=== PATIENT | male | born 1955 | race Hispanic/Latino ===

== ENCOUNTER 2017-12-25 06:02 | Day surgery (SDC) | payer BC ==
[~2017-12-25 06:02] MED LIST: NACL 0.9% 1000 ML 1,000 ML IV SCH
[2017-12-25] MEDS ORDERED: NACL BACTERIOSTATIC INFILTRATI ONE (06:10)
--- NOTE | 2017-12-25 07:19 | Anesthesia Day of Surgery ---
Anesthesia Day of Surgery - Day of Surgery Patient Examined: Yes Patient H&P Reviewed: Yes Patient is NPO: Yes
--- NOTE | 2017-12-25 07:19 | Anesthesia Consultation ---
Anesthesia Consult and Med Hx Date of service: 12/25/17 - Airway Anesthetic Teeth Evaluation: Good ROM Head & Neck: Adequate Mental/Hyoid Distance: Adequate Mallampati Class: Class I Intubation Access Assessment: Good - Pulmonary Exam CTA: Yes - Cardiac Exam Cardiac Exam: RRR - Pre-Operative Health Status ASA Pre-Surgery Classification: ASA2 Proposed Anesthetic Plan: General - Pulmonary Hx Smoking: No Hx Sleep Apnea: No (CAMILLE PRE SCREEN HIGH RISK) - Cardiovascular System Hx Hypertension: Yes (X 2 YRS) Hx Heart Attack/AMI: No - Central Nervous System Hx Back Pain: Yes (DUE TO STONE) - Endocrine Hx Cirrhosis: No - Other Systems Hx Cancer: No
[2017-12-25] MEDS ORDERED: DIPRIVAN 10 MG/ML IV ONE (07:45)
[2017-12-25] MEDS ORDERED: NARCAN 0.4 MG/1 ML IV PRN (08:00)
[2017-12-25] MEDS ORDERED: ZOFRAN IV PRN (08:00)
[2017-12-25] MEDS ORDERED: DEMEROL IV PRN (08:00)
[2017-12-25] MEDS ORDERED: ANCEF/STERILE WATER 2 GM/20 ML IV NR (08:00)
[2017-12-25] MEDS ORDERED: DILAUDID IV PRN (08:00)
[2017-12-25] MEDS ORDERED: XYLOCAINE MPF 2% ONE (08:32)
--- NOTE | 2017-12-25 10:03 | Operative Report ---
PREOPERATIVE DIAGNOSIS: Bilateral renal stones, right UPJ stone and large left renal stone. POSTOPERATIVE DIAGNOSES: Bilateral renal stones, right UPJ stone and large left renal stone. PROCEDURE: Right in situ lithotripsy. SURGEON: Andrey Dutta MD ANESTHESIA: General. FINDINGS: This is a gentleman with bilateral stones. He has pain more on the right than the left. I spoke with Dr. Lay. He wants the UPJ stone treated on the right and he will have followup treatment for the large stone in the left. PROCEDURE: The patient brought to the operating room and placed on the operating table. Following induction of anesthesia, placed over the focal point without difficulty. The stone was well visualized in the right UPJ. Shocks were begun at 1 kV, increased to maximum of 5 kV. A renal pause was carried out because it was hitting the lower pole of the kidney. The patient tolerated the procedure well. A total of 2500 shocks were given. He was brought to recovery room in stable condition. The patient did not want a stent and it looked like there was good fragmentation. JOB# [id number] DAKOTA/ROLA
--- NOTE | 2017-12-25 10:46 | Post Operative Note ---
Date of procedure: 12/25/17 Pre-op diagnosis: bilat stones r upj stone Post-op diagnosis: same Findings: as above Procedure: r eswl Anesthesia: GETA Surgeon: SHIRA WEBB Estimated blood loss: none Pathology: none Condition: stable Disposition: PACU
--- NOTE | 2017-12-25 10:47 | Discharge Summary ---
Short Stay Discharge Plan Activity: other (no straining ) Weight Bearing Status: Full Weight Bearing Diet: low fat, low salt Special Instructions: other (inc fluids ) Follow up with: PRIMARY CARE, [Primary Care Provider] - 7 Days PABLITO DE JESUS MD [Staff Physician] - 7 Days Forms: Outpatient Surgery DC Inst.
--- NOTE | 2017-12-25 14:21 | Post Anesthesia Evaluation ---
- Post Anesthesia Evaluation Patient Participated: Yes Airway Patent: Yes Stable Respiratory Function: Yes Nausea/Vomiting: No Temp > 96.8F: Yes Pain Manageable: Yes Adequeate Hydration: Yes Anesthesia Complications: No
[2017-12-25 14:55] VITALS: BP 120/80
== END 2017-12-25 10:50 | disposition home or self-care (01) ==
LOC: OR 06:02
PROVIDERS: ATTEND Urology
DX: N13.2 Hydronephrosis with renal and ureteral calculous obstruction (principal); I10 Essential (primary) hypertension
CPT/HCPCS: 50590; J0690; J2704; J7030

== ENCOUNTER 2018-01-22 06:02 | Day surgery (SDC) | payer BC ==
[~2018-01-22 06:02] MED LIST changes: +LACTATED RINGERS 1,000 ML IV SCH; -NACL 0.9% 1000 ML 1,000 ML IV SCH; +VERSED IV NR
[2018-01-22] MEDS ORDERED: DIPRIVAN 10 MG/ML IV ONE (07:35)
[2018-01-22] MEDS ORDERED: TORADOL ONE (07:36)
[2018-01-22] MEDS ORDERED: ZOFRAN ONE (07:36)
[2018-01-22] MEDS ORDERED: XYLOCAINE MPF 2% ONE (07:36)
--- NOTE | 2018-01-22 07:47 | Anesthesia Day of Surgery ---
Anesthesia Day of Surgery - Day of Surgery Patient Examined: Yes Patient H&P Reviewed: Yes Patient is NPO: Yes
--- NOTE | 2018-01-22 07:47 | Anesthesia Consultation ---
Anesthesia Consult and Med Hx Date of service: 01/22/18 - Airway Anesthetic Teeth Evaluation: Good, Caps ROM Head & Neck: Adequate Mental/Hyoid Distance: Adequate Mallampati Class: Class II Intubation Access Assessment: Probably Good - Pulmonary Exam CTA: Yes - Cardiac Exam Cardiac Exam: RRR - Pre-Operative Health Status ASA Pre-Surgery Classification: ASA2 Proposed Anesthetic Plan: General - Pulmonary Hx Smoking: No Hx Sleep Apnea: No (CAMILLE PRE SCREEN HIGH RISK) - Cardiovascular System Hx Hypertension: Yes (X 2 YRS) Hx Heart Attack/AMI: No - Central Nervous System Hx Back Pain: Yes (DUE TO STONE) - Endocrine Hx Cirrhosis: No - Other Systems Hx Cancer: No
[2018-01-22] MEDS ORDERED: DILAUDID IV PRN (08:00)
[2018-01-22] MEDS ORDERED: VERSED ONE (08:00)
[2018-01-22] MEDS ORDERED: ANCEF/STERILE WATER 2 GM/20 ML IV NR (08:30)
--- NOTE | 2018-01-22 08:36 | Post Operative Note ---
Date of procedure: 01/22/18 Pre-op diagnosis: bilat stones Post-op diagnosis: same Findings: l renal stones Procedure: l eswl Anesthesia: NEENA Surgeon: SHIRA WEBB Estimated blood loss: none Pathology: none Condition: stable Disposition: PACU
--- NOTE | 2018-01-22 08:37 | Discharge Summary ---
Short Stay Discharge Plan Activity: other (no straining ) Weight Bearing Status: Full Weight Bearing Diet: low fat Special Instructions: other (inc fluids ) Follow up with: DEVONTE NINO MD [Primary Care Provider] - 7 Days PABLITO DE JESUS MD [Staff Physician] - 7 Days
--- NOTE | 2018-01-22 09:42 | Operative Report ---
PREOPERATIVE DIAGNOSIS: Bilateral renal stone. POSTOPERATIVE DIAGNOSES: Bilateral renal stone. PROCEDURE: Left lithotripsy. SURGEON: Andrey Dutta MD ANESTHESIA: General. FINDINGS: This is a gentleman, who has had right renal stone, has had that cleared, now presents for left lithotripsy. All risks and implications discussed. DESCRIPTION OF PROCEDURE: The patient brought to the operating room and placed on the operating table. Following induction of anesthesia stone well localized, both the AP and oblique image. I reviewed the case with Dr. Lay. He had a ball valve stone, which was now build up in the lower pole with a caliceal stone. We were focusing on that stone. Shocks were begun at 1 kV and increased to 6 kV. We were only at 6 for few 100 shocks. Renal pause was carried out and then the power was gradually increased. The patient tolerated the procedure well. No significant complication. He needs followup. He may need further procedures such as ureteroscopy, percutaneous nephrolithotomy. This was explained, brought to recovery in stable condition. JOB# [id number] DAKOTA/ROLA
[2018-01-22 10:29] VITALS: BP 127/78
== END 2018-01-22 06:03 | disposition home or self-care (01) ==
LOC: OR 06:02
PROVIDERS: ATTEND Urology
DX: N20.0 Calculus of kidney (principal); I10 Essential (primary) hypertension; Z88.5 Allergy status to narcotic agent
CPT/HCPCS: 50590; J0690; J1885; J2250; J2405; J2704; J7120

== ENCOUNTER 2018-02-05 09:53 | Day surgery (SDC) | payer BC ==
--- NOTE | 2018-02-05 12:10 | Short Stay Summary ---
Short Stay Documentation Date of service: 02/05/18 - History H&P: obtained from office - Allergies and Medications Current Medications: Allergies codeine Allergy (Verified 12/15/17 17:24) Vomiting Home Medications Medication Instructions Recorded Confirmed Last Taken Type HYDROcodone/APAP 5-325 [Isom 1 each PO Q6HR PRN 12/15/17 01/30/18 01/01/18 History 5/325] Lisinopril [Zestril] 10 mg PO DAILY 12/15/17 01/30/18 01/21/18 19:30 History Naproxen Sodium [Aleve] 220 mg PO PRN PRN 12/15/17 01/30/18 01/01/18 History Tamsulosin [Flomax] 0.4 mg PO QDAY 12/15/17 01/30/18 01/01/18 History Nitrofurantoin Monohyd/M-Cryst 100 mg PO BID 01/14/18 01/30/18 01/21/18 19:30 History [Macrobid 100 mg Capsule] - Brief post op/procedure progress note Date of procedure: 02/05/18 Pre-op diagnosis: Right ureteral stone L4, jaime renal stone , jaime hydro Procedure: rt uret eswl, rt rpg cyssto, 6x28 stent Anesthesia: GETA Findings: right L4 stone Surgeon: PABLITO DE JESUS Estimated blood loss: minimal Condition: stable - Hospital course Hospital course: or pacu home - Disposition Condition at discharge: Good Disposition: DC-01 TO HOME OR SELFCARE Short Stay Discharge Plan Activity: advance as tolerated Diet: advance as tolerated Follow up with: PABLITO DE JESUS MD [Staff Physician] - 7 Days
[2018-02-05] MEDS ORDERED: ANCEF/STERILE WATER 2 GM/20 ML IV NR (14:00)
[2018-02-05] MEDS ORDERED: NACL 0.9% 1000 ML 1,000 ML IV SCH (15:00)
--- NOTE | 2018-02-05 15:00 | Anesthesia Consultation ---
Anesthesia Consult and Med Hx Date of service: 02/05/18 - Airway Anesthetic Teeth Evaluation: Poor ROM Head & Neck: Adequate Mental/Hyoid Distance: Adequate Mallampati Class: Class II Intubation Access Assessment: Probably Good - Pulmonary Exam CTA: Yes - Cardiac Exam Cardiac Exam: RRR - Pre-Operative Health Status ASA Pre-Surgery Classification: ASA2 Proposed Anesthetic Plan: General - Pulmonary Hx Smoking: No Hx Sleep Apnea: No (CAMILLE PRE SCREEN HIGH RISK) - Cardiovascular System Hx Hypertension: Yes (X 2 YRS) Hx Heart Attack/AMI: No - Central Nervous System Hx Back Pain: Yes (DUE TO STONE) - Endocrine Hx Cirrhosis: No - Other Systems Hx Cancer: No
[2018-02-05] MEDS ORDERED: DIPRIVAN 10 MG/ML IV ONE (15:31)
[2018-02-05] MEDS ORDERED: XYLOCAINE MPF 2% ONE (15:32)
[2018-02-05] MEDS ORDERED: SUBLIMAZE ONE (15:34)
[2018-02-05] MEDS ORDERED: DECADRON ONE (15:34)
[2018-02-05] MEDS ORDERED: ZOFRAN ONE (15:34)
[2018-02-05] MEDS ORDERED: OMNIPAQUE 300 MG/50 ML (CATH LAB) IV ONE (16:22)
--- NOTE | 2018-02-05 16:51 | XRay Report ---
KUB: 02/05/18 12:24:00 CLINICAL: Left kidney stones. COMPARISON: 12/24/12 FINDINGS: Left upper quadrant calcifications overlie the left kidney and an increase in size, number and density as the last exam. A single 1 cm more superior calculus and a cluster of one or more inferior calculi. Probable phleboliths in the pelvis. A right paraspinous calcification at L4 appears to be a amelia calcification. Normal bowel gas pattern. The bones are unremarkable. IMPRESSION: Left renal calculi increased in size and number compared to the last exam.
[2018-02-05 18:21] VITALS: BP 142/90
--- NOTE | 2018-02-15 22:56 | Operative Report ---
PREOPERATIVE DIAGNOSIS: Right ureteral L4 stone, right hydronephrosis and bilateral renal stones. PROCEDURE: Right ureteral ESWL, right RPG cystoscopy and right 6 x 20 double-J stent. ANESTHESIA: General. FINDINGS: Right L4 stone. SURGEON: Kurt Lay M.D. ESTIMATED BLOOD LOSS: Minimal. CONDITION: Stable, OR to PACU, to home. CLINICAL INDICATIONS: The patient was counseled on RCBA had antibiotics, SCDs. Discussed options. DESCRIPTION OF PROCEDURE: The patient was transferred to OR suite in supine position, anesthesia begun. The stone was easily visible. A total shocks were delivered at a maximum of 6.0 kilovolts. At the end of the procedure, could not easily see the stone. At this point, the patient was placed in the dorsal lithotomy. Cystoscopy was set up, 22-Yi cystoscope passed. Pancystoscopy, no tumors or lesions. Of note, the patient has had significant hydro for a while and elected to proceed with stent placement to ensure adequate drainage. Contrast injected, confirmed our position, but there was hydroureter. Wire passed up the right renal pelvis. A 6 x 20 double-J stent was passed over the wire under direct and fluoroscopic visualization. When the wire and string was removed, nice proximal J, nice distal J, bladder drained. The patient awakened and transferred to PACU in good and stable condition. PLAN: Staged for future removal of stent. JOB# [id number] ATS/NTS
== END 2018-02-05 18:50 | disposition home or self-care (01) ==
LOC: OR 09:53
PROVIDERS: ATTEND Urology
DX: N13.2 Hydronephrosis with renal and ureteral calculous obstruction (principal); I10 Essential (primary) hypertension; Z88.5 Allergy status to narcotic agent; Z98.890 Other specified postprocedural states; Z79.899 Other long term (current) drug therapy
CPT/HCPCS: 50590; 52356; 74018; C1726; C1758; C1769; C2617; J0690; J1100; J2405; J2704; J3010; J7030

== ENCOUNTER 2018-10-08 10:06 | Day surgery (SDC) | payer BC, OTHER ==
[2018-10-08] MEDS ORDERED: LACTATED RINGERS 1,000 ML IV SCH (10:30)
[2018-10-08] MEDS ORDERED: ANCEF/STERILE WATER 2 GM/20 ML IV NR (10:30)
[2018-10-08] MEDS ORDERED: SUBLIMAZE IV PRN (10:36)
--- NOTE | 2018-10-08 10:36 | Anesthesia Day of Surgery ---
Anesthesia Day of Surgery - Day of Surgery Patient Examined: Yes Patient H&P Reviewed: Yes Patient is NPO: Yes
--- NOTE | 2018-10-08 10:36 | Anesthesia Consultation ---
Anesthesia Consult and Med Hx Date of service: 10/08/18 - Airway Anesthetic Teeth Evaluation: Good ROM Head & Neck: Adequate Mental/Hyoid Distance: Adequate Mallampati Class: Class I Intubation Access Assessment: Good - Pulmonary Exam CTA: Yes - Cardiac Exam Cardiac Exam: RRR - Pre-Operative Health Status ASA Pre-Surgery Classification: ASA2 Proposed Anesthetic Plan: General - Pulmonary Hx Smoking: No Hx Asthma: No Hx Respiratory Symptoms: No Hx Sleep Apnea: No (CAMILLE PRE SCREEN HIGH RISK) - Cardiovascular System Hx Hypertension: Yes (last dose antihypertensives 10/07/18 1900) Hx Heart Attack/AMI: No Hx Percutaneous Transluminal Coronary Angioplasty (PTCA): No Hx Cardia Arrhythmia: No - Central Nervous System Hx Seizures: No CVA: No Hx Back Pain: Yes (2/2 kidney stone) - Gastrointestinal Hx Gastroesophageal Reflux Disease: No - Endocrine Hx Renal Disease: No Hx Liver Disease: No Hx Insulin Dependent Diabetes: No Hx Non-Insulin Dependent Diabetes: No Hx Thyroid Disease: No - Other Systems Hx Obesity: No - Additional Comments Anesthesia Medical History Comments: No hx anesthetic complications.
[2018-10-08] MEDS ORDERED: VERSED IV NR (11:00)
[2018-10-08] MEDS ORDERED: SUBLIMAZE ONE (11:44)
[2018-10-08] MEDS ORDERED: XYLOCAINE MPF 2% ONE (11:44)
[2018-10-08] MEDS ORDERED: ZOFRAN ONE (11:44)
[2018-10-08] MEDS ORDERED: DIPRIVAN 10 MG/ML IV ONE (11:44)
--- NOTE | 2018-10-08 12:04 | Post Operative Note ---
Date of procedure: 10/08/18 Pre-op diagnosis: l renal stones Post-op diagnosis: same Findings: as above Procedure: L ESWL Anesthesia: NEENA Surgeon: SHIRA WEBB Estimated blood loss: none Pathology: none Condition: stable Disposition: PACU
--- NOTE | 2018-10-08 12:05 | Discharge Summary ---
Short Stay Discharge Plan Activity: other (no straining ) Weight Bearing Status: Full Weight Bearing Diet: low fat, low cholesterol, low salt Special Instructions: other (inc fluids ) Follow up with: DEVONTE NINO MD [Primary Care Provider] - 7 Days PABLITO DE JESUS MD [Staff Physician] - 7 Days
--- NOTE | 2018-10-08 12:34 | Operative Report ---
PREOPERATIVE DIAGNOSIS: Left renal stone. POSTOPERATIVE DIAGNOSIS: Left renal stone. PROCEDURE: Left ESWL. SURGEON: Andrey Dutta MD ANESTHESIA: General. FINDINGS: This is a gentleman with a large stone, left kidney. He has an intermittent pain, he now presents for lithotripsy. DESCRIPTION OF PROCEDURE: The patient was brought to the operating room and placed on the operating table. Following induction of anesthesia, stone was easily localized on both the AP and oblique image. Shocks were begun at 1 kV, increased to a maximum of 8 kV. Total of 2500 shocks were given. The patient tolerated the procedure well. Excellent fragmentation was accomplished and the plan, he needs close followup because this was a large stone. This was explained to him and his family. He tolerated the procedure well and brought to recovery in stable condition. JOB# [id number] DAKOTA/ROLA
--- NOTE | 2018-10-08 13:46 | Post Anesthesia Evaluation ---
- Post Anesthesia Evaluation Patient Participated: Yes Airway Patent: Yes Stable Respiratory Function: Yes Temp > 96.8F: Yes Pain Manageable: Yes Adequeate Hydration: Yes Anesthesia Complications: No
[2018-10-08 13:49] VITALS: BP 136/72
== END 2018-10-08 10:07 | disposition home or self-care (01) ==
LOC: OR 10:06
PROVIDERS: ATTEND Urology
DX: N20.0 Calculus of kidney (principal); I10 Essential (primary) hypertension; M19.90 Unspecified osteoarthritis, unspecified site; Z88.5 Allergy status to narcotic agent; Z79.899 Other long term (current) drug therapy
CPT/HCPCS: 50590; J0690; J2250; J2405; J2704; J3010; J7120

== ENCOUNTER 2019-04-07 14:30 | Day surgery (SDC) | payer OTHER ==
[2019-04-07] MEDS ORDERED: LACTATED RINGERS 1,000 ML ONE (14:54)
[2019-04-07] MEDS ORDERED: ANCEF/STERILE WATER 2 GM/20 ML IV NR (15:00)
[2019-04-07] MEDS ORDERED: LACTATED RINGERS 1,000 ML IV SCH (15:00)
[2019-04-07] MEDS ORDERED: SUBLIMAZE IV PRN (15:14)
[2019-04-07] MEDS ORDERED: ZOFRAN IV PRN (15:14)
--- NOTE | 2019-04-07 15:19 | Anesthesia Consultation ---
Anesthesia Consult and Med Hx Date of service: 04/07/19 - Airway Anesthetic Teeth Evaluation: Chipped, Caps ROM Head & Neck: Adequate Mental/Hyoid Distance: Adequate Mallampati Class: Class II Intubation Access Assessment: Good - Pre-Operative Health Status ASA Pre-Surgery Classification: ASA2, Emergency Proposed Anesthetic Plan: General - Pulmonary Hx Smoking: No Hx Asthma: No Hx Respiratory Symptoms: No Hx Sleep Apnea: No (CAMILLE PRE SCREEN HIGH RISK) - Cardiovascular System Hx Hypertension: Yes (last dose antihypertensives yesterday PM) Hx Heart Attack/AMI: No Hx Percutaneous Transluminal Coronary Angioplasty (PTCA): No Hx Cardia Arrhythmia: No - Central Nervous System Hx Seizures: No CVA: No Hx Back Pain: Yes (2/2 kidney stone) - Gastrointestinal Hx Gastroesophageal Reflux Disease: No - Endocrine Hx Renal Disease: Yes (Stones) Hx Cirrhosis: No Hx Liver Disease: No Hx Insulin Dependent Diabetes: No Hx Non-Insulin Dependent Diabetes: No Hx Thyroid Disease: No - Other Systems Hx Cancer: No Hx Obesity: No
--- NOTE | 2019-04-07 15:19 | Anesthesia Day of Surgery ---
Anesthesia Day of Surgery - Day of Surgery Patient Examined: Yes Patient H&P Reviewed: Yes Patient is NPO: Yes
[2019-04-07] MEDS ORDERED: DIPRIVAN 10 MG/ML IV ONE (16:44)
[2019-04-07] MEDS ORDERED: SUBLIMAZE ONE (16:44)
[2019-04-07] MEDS ORDERED: ZOFRAN ONE (17:24)
[2019-04-07] MEDS ORDERED: WATER FOR IRRIG STERILE IR ONE (18:00)
--- NOTE | 2019-04-07 18:37 | Short Stay Summary ---
Short Stay Documentation Date of service: 04/07/19 - History Past Medical History: No medical history - Allergies and Medications Current Medications: Allergies codeine Allergy (Verified 12/15/17 17:24) Vomiting Home Medications Medication Instructions Recorded Confirmed Last Taken Type HYDROcodone/APAP 5-325 [Ralston 1 each PO Q6HR PRN 12/15/17 04/07/19 01/01/18 History 5/325] Lisinopril [Zestril] 10 mg PO DAILY 12/15/17 04/07/19 04/06/19 20:00 History Naproxen Sodium [Aleve] 220 mg PO PRN PRN 12/15/17 04/07/19 04/05/19 09:00 History Tamsulosin [Flomax] 0.4 mg PO QDAY 12/15/17 04/07/19 04/06/19 20:00 History Active Medications Cefazolin Sodium (Ancef/Sterile Water 2 Gm/20 Ml) 2 gm IV PREOP NR Stop: 04/07/19 23:59 Fentanyl (Sublimaze) 50 mcg IV Q5MIN PRN PRN Reason: Pain , Severe (7-10) Lactated Ringer's (Lactated Ringers) 1,000 mls @ 100 mls/hr IV DIRECT DAMARIS Last Admin: 04/07/19 15:00 Dose: 100 mls/hr Documented by: Ondansetron HCl (Zofran) 4 mg IV ONCE PRN PRN Reason: Nausea And Vomiting - Brief post op/procedure progress note Date of procedure: 04/07/19 Pre-op diagnosis: left hyydro, upj 7m; left lower poles stones Post-op diagnosis: same Procedure: lt urs, laser, sbe, stent 6x28, staged for removal, jaime rpb Anesthesia: GETA Findings: left mid zen, stone likely rolled back since pain betterl; left lp stone Surgeon: PABLITO DE JESUS Estimated blood loss: minimal Pathology: none Condition: stable - Hospital course Hospital course: orpacuhome - Disposition Condition at discharge: Good Disposition: DC-01 TO HOME OR SELFCARE Short Stay Discharge Plan Activity: advance as tolerated Diet: advance as tolerated Follow up with: PABLITO DE JESUS MD [Staff Physician] - 7 Days
--- NOTE | 2019-04-07 19:10 | Fluoroscopy Report ---
8 fluoroscopic images submitted Indication: Intraoperative localization Impression: 8 images of abdomen were submitted for documentation purposes with radiology involvement . Bilateral cystoscopy performed with stones visualized in the left kidney, stone removal, and ultim ately left-sided double-J ureteral stent placement in satisfactory position. Fluoroscopic time: 3.3 minutes Signer Name: Rk Reynolds MD Signed: 04/07/2019 7:05 PM Workstation Name: [id number]
[2019-04-07 19:50] VITALS: BP 160/84
--- NOTE | 2019-04-07 20:33 | Post Anesthesia Evaluation ---
- Post Anesthesia Evaluation Patient Participated: Yes Airway Patent: Yes Stable Respiratory Function: Yes Nausea/Vomiting: No Temp > 96.8F: Yes Pain Manageable: Yes Adequeate Hydration: Yes Anesthesia Complications: No Block Receding Appropriately: Not Applicable Patient on Ventilator: No
--- NOTE | 2019-04-22 13:29 | Operative Report ---
PREOPERATIVE DIAGNOSES: Left proximal ureteral stone, left renal stones. POSTOPERATIVE DIAGNOSES: Left proximal ureteral stone, left renal stones. PROCEDURES: Cystoscopy, bilateral RPG, left ureteroscopy, holmium laser fragmentation of the UPJ stone, holmium laser fragmentation of lower pole stones, left stent placement, staged for future removal. SURGEON: Kurt Lay MD. ANESTHESIA: General. SPECIMEN: None. ESTIMATED BLOOD LOSS: Minimal. FINDINGS: Stone in left renal pelvis, stone in the lower pole difficult to access and of an anatomy that may be difficult to passively move to the UPJ. CLINICAL INDICATIONS: Counseled RCBA, antibiotics, SCD. DESCRIPTION OF PROCEDURE: Transferred to OR suite in supine position, anesthesia, dorsal lithotomy, prepped and draped in standard fashion. A 22-Faroese scope passed. Pancystoscopy, no tumors. Right retrograde pyelogram, 8-Faroese cone tipped catheter within normal limits. There was radiopaque density before contrast was injected, probably left renal pelvis and left lower pole and probably left mid marisol, could be a stone. At this point, dye was injected. No filling defects. Second Glidewire passed. Flexible scope was passed over the wire up to the renal pelvis. No stone at the UPJ was just inside the pelvis and then pushed back to the mid portion of the kidney. Holmium laser fiber passed. This was fragmented into smaller and smaller pieces with continued irrigation, evaluation and inspection, removing the scope, which was difficult due to its location. Next, when this was in tiny fragments, we passed the scope into the lower pole, which was difficult not a great angle. There was a narrowing in the opening to the calyx and was in a position, which could be hard to pass, but we were able to get laser fiber down to the stone. We fragmented this into multiple tiny fragments, but unable to grasp. The scope was withdrawn. Wire backloaded on the cystoscope. A 6-Faroese double-J stent was passed over the wire under direct and fluoroscopic visualization. When wire and string removed, nice proximal and distal J, staged for future removal. Exam under anesthesia, bilateral descended testicles, prostate, no nodules. The patient awakened and transferred to PACU in good and stable condition. JOB# [id number] ATS/NTS
== END 2019-04-07 14:31 | disposition home or self-care (01) ==
LOC: OR 14:30
PROVIDERS: ATTEND Urology
DX: N20.2 Calculus of kidney with calculus of ureter (principal); I10 Essential (primary) hypertension; M19.90 Unspecified osteoarthritis, unspecified site; Z79.899 Other long term (current) drug therapy; Z88.5 Allergy status to narcotic agent; Z98.890 Other specified postprocedural states
CPT/HCPCS: 52356; 74420; A4217; C1758; C1769; C2617; J0690; J2405; J2704; J3010; J7120; Q9967